=== PATIENT | female | born 1985 | race Caucasian/White ===

== ENCOUNTER 2016-04-25 23:26 | Emergency (ER) | payer OTHER ==
[2016-04-25 23:34] VITALS: RESP 18
--- NOTE | 2016-04-26 00:16 | ED ---
General Adult HPI - General Chief complaint: Abdominal Pain Stated complaint: Female Time Seen by Provider: 04/25/16 23:49 Source: patient, RN notes reviewed Mode of arrival: ambulatory Limitations: no limitations - History of Present Illness Initial comments: Patient is a 31-year-old female presents to the emergency room for evaluation of constipation. Patient states she had a laparoscopic appendectomy on Sunday. Patient states patient denies complications during the procedure. Patient states she had the procedure done in [place]. Patient states that she was given [place] as needed for pain. Patient states she hasn't had a bowel movement since she had the surgery done. Patient denies worsening abdominal pain. Patient denies any drainage or redness from the incision sites. Patient states her next follow-up appointment with her surgeon is next Sunday. Patient states she has the urge to make a bowel movement but is unable to get anything out. Patient states she tried taking Colace today, with no relief of symptoms. Patient states she discontinued [place] 2 days ago with no relief of symptoms. Patient denies history of bowel obstructions. Patient denies any other abdominal surgeries. Patient denies fevers or chills. Patient denies nausea or vomiting. - Related Data Home Medications Medication Instructions Recorded Confirmed Acetaminophen-Codeine 300-30mg 1 tab PO DAILY PRN 04/25/16 04/25/16 [Tylenol #3] Albuterol Inhaler [Ventolin Hfa 1 - 2 puff INHALATION RT-Q6H PRN 04/25/16 Inhaler] Docusate [Colace] 100 mg PO DAILY PRN 04/25/16 04/25/16 Ferrous Sulfate [Feosol] 325 mg PO DAILY 04/25/16 04/25/16 Pnv with Ca,No.72/Iron/FA 1 tab PO DAILY 04/25/16 04/25/16 [ Plus Tablet] Allergies Allergy/AdvReac Type Severity Reaction Status Date / Time ciprofloxacin [From Cipro] Allergy Unknown Verified 04/25/16 23:44 Childhood Review of Systems ROS Statement: Those systems with pertinent positive or pertinent negative responses have been documented in the HPI. ROS Other: All systems not noted in ROS Statement are negative. Past Medical History Past Medical History: Asthma History of Any Multi-Drug Resistant Organisms: None Reported Past Surgical History: Appendectomy Past Psychological History: No Psychological Hx Reported Smoking Status: Current every day smoker Past Alcohol Use History: Occasional Past Drug Use History: None Reported General Exam - General Exam Comments Initial Comments: Sitting in exam room, no acute distress. Limitations: no limitations General appearance: alert, in no apparent distress Head exam: Present: atraumatic, normocephalic, normal inspection Eye exam: Present: normal appearance ENT exam: Present: normal exam Neck exam: Present: normal inspection Respiratory exam: Present: normal lung sounds bilaterally. Absent: respiratory distress Cardiovascular Exam: Present: regular rate, normal rhythm, normal heart sounds GI/Abdominal exam: Present: soft, other (Healing 1cm incision sites in the umbilicus, left upper quadrant, left lower quadrant and suprapubic area. No urinary erythema, drainage or edema of the incision sites.). Absent: distended , tenderness, guarding, rebound, rigid Extremities exam: Present: normal inspection Back exam: Present: normal inspection Neurological exam: Present: alert, oriented X3, CN II-XII intact, normal gait Psychiatric exam: Present: normal affect, normal mood Skin exam: Present: warm, dry, intact, normal color. Absent: rash Course Vital Signs 04/25/16 04/26/16 23:30 01:11 Temperature 98.1 F 97.3 F L Pulse Rate 72 56 L Respiratory 18 18 Rate Blood Pressure 130/83 125/88 O2 Sat by Pulse 100 99 Oximetry Medical Decision Making - Medical Decision Making Patient is a 31-year-old female presents to emergency room for evaluation of constipation. KUB significant for for a mild amount of colonic stool. Molasses enema was ordered for patient. Patient was unable to tolerate procedure. Patient refused rectal exam. Will send patient home with magnesium citrate and advised her to drink plenty of water. Advised patient to return for worsening symptoms. Patient states she understands everything that was discussed with her. Case discussed with Dr. Melchor. - Radiology Data Radiology results: report reviewed, image reviewed Disposition Clinical Impression: Constipation Disposition: HOME SELF-CARE Condition: Good Instructions: Constipation (ED) Additional Instructions: Drink a lot of water. Take magnesium citrate. Please follow up with primary care provider in 1-2 days. If any new symptom arises or symptoms worsen, return to ER as soon as possible. Referrals: Demetra Ching MD [Primary Care Provider] - 1-2 days Time of Disposition: 01:06
--- NOTE | 2016-04-26 00:31 | XR ---
EXAM: XR Abdomen, 1 View. CLINICAL HISTORY: Reason: Pain TECHNIQUE: Frontal upright views of the abdomen/pelvis. COMPARISON: No relevant prior studies available. FINDINGS: Gastrointestinal tract: Soft tissue air is present within the right and left lateral abdominal wall soft tissues, and there is probably also free air that is seen outlining portions of the right and left colon, and would be consistent with the history of recent abdominal surgery. There is a mild to moderate amount of colonic stool present throughout, to the rectum. No grossly dilated bowel loops are seen. Visualized organs and vessels: Small round radiodense focus overlying the liver on one of the 2 images (not included on the second lower image) may be artifact or external to the patient given its appearance. Bones: Unremarkable. No acute fracture. IMPRESSION: 1. Intra-abdominal as well as abdominal wall air, which be consistent with the history of recent abdominal surgery. 2. Moderate amount of colonic stool. 3. Possible artifact overlying the right upper quadrant, as above.
[2016-04-26] MEDS ORDERED: MAGNESIUM CITRATE 296 ML BOTTLE PO ONE (01:05)
[2016-04-26 01:11] VITALS: BP 125/88; PULSE 56; TEMP 97.3
== END 2016-04-26 01:17 | disposition home or self-care (01) ==
LOC: EC 23:26
DX: K59.03 Drug induced constipation (principal); T40.2X5A Adverse effect of other opioids, initial encounter; Z79.899 Other long term (current) drug therapy; Z88.1 Allergy status to other antibiotic agents; F17.200 Nicotine dependence, unspecified, uncomplicated
CPT/HCPCS: 74000; 99284

== ENCOUNTER 2024-04-21 22:11 | Emergency (ER) | payer OTHER ==
[2024-04-21 22:19] VITALS: TEMP 98.7
--- NOTE | 2024-04-21 22:39 | ED ---
Seizure HPI - General Chief Complaint: Seizure Stated Complaint: Seizure Time Seen by Provider: 04/21/24 22:23 Source: patient, RN notes reviewed, old records reviewed Mode of arrival: wheelchair - History of Present Illness Initial Comments: This is a 39-year-old female who presents to the ER today for evaluation of seizure history of seizures. 2 weeks ago patient had seizure medication switched from Keppra to breviac. Patient is a poor historian history is mainly obtained from at bedside patient's family is here patient had a seizure just prior to arrival. Patient was having a normal day feeling well no recent illnesses. Take medication as prescribed. Patient did bite her tongue does have a headache which is normal postseizure symptoms for her MD Complaint: seizure -: minutes(s) Description of Episode: loss of consciousness, tonic-clonic movement, post-event confusion -: second(s) Witnessed: no Seizure History: known seizure disorder Place: home Possible Precipitating Event: none Treatments Prior to Arrival: none - Related Data Home Medications Medication Instructions Recorded Confirmed Acetaminophen-Codeine 300-30mg 1 tab PO DAILY PRN 04/25/16 04/25/16 [Tylenol #3] Albuterol Inhaler [Ventolin Hfa 1 - 2 puff INHALATION RT-Q6H PRN 04/25/16 04/25/16 Inhaler] Docusate [Colace] 100 mg PO DAILY PRN 04/25/16 04/25/16 Ferrous Sulfate [Feosol] 325 mg PO DAILY 04/25/16 04/25/16 Pnv,Calcium 72/Iron/Folic Acid 1 tab PO DAILY 04/25/16 04/25/16 [ Plus Tablet] Allergies Allergy/AdvReac Type Severity Reaction Status Date / Time ciprofloxacin [From Cipro] Allergy Unknown Verified 04/21/24 22:19 Childhood Review of Systems ROS Statement: Those systems with pertinent positive or pertinent negative responses have been documented in the HPI. ROS Other: All systems not noted in ROS Statement are negative. Past Medical History Past Medical History: Asthma, Seizure Disorder History of Any Multi-Drug Resistant Organisms: None Reported Past Surgical History: Appendectomy Past Psychological History: No Psychological Hx Reported Past Alcohol Use History: Occasional Past Drug Use History: None Reported General Exam General appearance: alert, in no apparent distress, anxious Head exam: Present: atraumatic, normocephalic, normal inspection Eye exam: Present: normal appearance, PERRL, EOMI. Absent: scleral icterus, conjunctival injection, periorbital swelling ENT exam: Present: normal exam, mucous membranes moist Neck exam: Present: normal inspection. Absent: tenderness, meningismus, lymphadenopathy Respiratory exam: Present: normal lung sounds bilaterally. Absent: respiratory distress, wheezes, rales, rhonchi, stridor Cardiovascular Exam: Present: regular rate, normal rhythm, normal heart sounds. Absent: systolic murmur, diastolic murmur, rubs, gallop, clicks GI/Abdominal exam: Present: soft, normal bowel sounds. Absent: distended, tenderness, guarding, rebound, rigid Extremities exam: Present: normal inspection, full ROM, normal capillary refill. Absent: tenderness, pedal edema, joint swelling, calf tenderness Back exam: Present: normal inspection Neurological exam: Present: alert, oriented X3, CN II-XII intact Psychiatric exam: Present: normal affect, normal mood Skin exam: Present: warm, dry, intact, normal color. Absent: rash Course Vital Signs 04/21/24 04/22/24 22:14 00:14 Temperature 98.7 F Pulse Rate 91 73 Respiratory 18 16 Rate Blood Pressure 127/82 109/75 O2 Sat by Pulse 99 97 Oximetry - Reevaluation(s) Reevaluation #1: 04/21/24 22:54 Records reviewed Reevaluation #2: 04/21/24 22:54 No recurrent seizure here in the ER Reevaluation #3: 04/21/24 22:54 Informed of results and questions answered Reevaluation #4: Was pt. sent in by a medical professional or institution (, PA, JAVA PROGRAMMER ANALYST, urgent care, hospital, or [place] [facility] care facility...) When possible be specific @ -no Did you speak to anyone other than the patient for history (EMS, parent, family, police, friend...)? What history was obtained from this source @ -no Did you review nursing and triage notes (agree or disagree)? Why? @ -agree Are old charts reviewed (outside hosp., previous admission, EMS record, old EKG, old radiological studies, urgent care reports/EKG's, [place] health care facility records)? Report findings @ -yes Differential Diagnosis (chest pain, altered mental status, abdominal pain women, abdominal pain men, vaginal bleeding, weakness, fever, dyspnea, syncope, headache, dizziness, GI bleed, back pain, seizure, CVA, palpatations, mental health, musculoskeletal)? @ -prior EKG interpreted by me (3pts min.). @ -no X-rays interpreted by me (1pt min.). @ -no CT interpreted by me (1pt min.). @ -no U/S interpreted by me (1pt. min.). @ -no What testing was considered but not performed or refused? (CT, X-rays, U/S, labs)? Why? @ -none What meds were considered but not given or refused? Why? @ -none Did you discuss the management of the patient with other professionals (professionals i.e. , PA, JAVA PROGRAMMER ANALYST, lab, RT, psych nurse, social services analyst, oss architect, teacher, customs patrol officer, case technician)? Give summary @ -no Was smoking cessation discussed for >3mins.? @ -no Was critical care preformed (if so, how long)? @ -no Were there social determinants of health that impacted care today? How? (Homelessness, low income, unemployed, alcoholism, drug addiction, transportation, low edu. Level, literacy, decrease access to med. care, fpc, rehab)? @ -none Was there de-escalation of care discussed even if they declined (Discuss DNR or withdrawal of care, Hospice)? DNR status @ -no What co-morbidities impacted this encounter? (DM, HTN, Smoking, COPD, CAD, Cancer, CVA, ARF, Chemo, Hep., AIDS, mental health diagnosis, sleep apnea, morbid obesity)? @ -none Was patient admitted / discharged? Hospital course, mention meds given and route, prescriptions, significant lab abnormalities, going to OR and other pertinent info. @ -39 female recurrent seizure, epileptic seizure, patient is in no distress here in the ER and can be discharged home Discharge Undiagnosed new problem with uncertain prognosis? @ -no Drug Therapy requiring intensive monitoring for toxicity (Heparin, Nitro, Insulin, Cardizem)? @ -no Were any procedures done? @ -no Diagnosis/symptom? @ -recurrent seizure Acute, or Chronic, or Acute on Chronic? @ -Acute Uncomplicated (without systemic symptoms) or Complicated (systemic symptoms)? @ -Complicated Side effects of treatment? @ -no Exacerbation, Progression, or Severe Exacerbation? @ -exacerbation Poses a threat to life or bodily function? How? (Chest pain, [place], NH, pneumonia, PE, COPD, DKA, ARF, appy, cholecystitis, CVA, Diverticulitis, Homicidal, Suicidal, threat to staff... and all critical care pts) @ -no Reevaluation #5: Differential Seizure: Recurrent seizure disorder, febrile seizure, alcohol withdrawal, stimulants, meningitis, encephalitis, intercranial hemorrhage, intracranial tumor, stroke, eclampsia, thyrotoxicosis, hypocalcemia, hyponatremia, hypernatremia, hypomagnesemia, psychogenic, this is not meant to be an all-inclusive list. Medical Decision Making - Medical Decision Making 39 female to the ER for evaluation of seizure recurrent seizure activity here in the ER patient feels well and can be discharged home - Lab Data Result diagrams: 04/21/24 23:15 04/21/24 23:15 Lab Results 04/21/24 04/21/24 Range/Units 23:15 23:15 WBC 6.3 (3.8-10.6) k/uL RBC 3.72 L (3.80-5.40) m/uL Hgb 11.0 L (11.4-16.0) gm/dL Hct 33.7 L (34.0-46.0) % MCV 90.6 (80.0-100.0) fL MCH 29.5 (25.0-35.0) pg MCHC 32.6 (31.0-37.0) g/dL RDW 15.2 (11.5-15.5) % Plt Count 209 (150-450) k/uL MPV 7.9 Neutrophils % 56 % Lymphocytes % 30 % Monocytes % 5 % Eosinophils % 6 % Basophils % 1 % Neutrophils # 3.5 (1.3-7.7) k/uL Lymphocytes # 1.9 (1.0-4.8) k/uL Monocytes # 0.3 (0-1.0) k/uL Eosinophils # 0.4 (0-0.7) k/uL Basophils # 0.0 (0-0.2) k/uL Sodium 136 L (137-145) mmol/L Potassium 3.6 (3.5-5.1) mmol/L Chloride 107 (98-107) mmol/L Carbon Dioxide 24 (22-30) mmol/L Anion Gap 5 mmol/L BUN 10 (7-17) mg/dL Creatinine 0.56 (0.52-1.04) mg/dL Est GFR (CKD-EPI)AfAm >90 (>60 ml/min/1.73 sqM) Est GFR (CKD-EPI)NonAf >90 (>60 ml/min/1.73 sqM) Glucose 87 (74-99) mg/dL Calcium 8.7 (8.4-10.2) mg/dL Magnesium 1.7 (1.6-2.3) mg/dL Total Bilirubin 0.3 (0.2-1.3) mg/dL AST 18 (14-36) U/L ALT 12 (4-34) U/L Alkaline Phosphatase 65 (38-126) U/L Total Protein 5.7 L (6.3-8.2) g/dL Albumin 3.4 L (3.5-5.0) g/dL Disposition Clinical Impression: Epileptic seizure, generalized Disposition: HOME SELF-CARE Condition: Fair Instructions (If sedation given, give patient instructions): Seizure/Epilepsy Discharge Instructions & Follow-Up, Recurrent Seizures in Adults (ED) Is patient prescribed a controlled substance at d/c from ED?: No Referrals: Macey Carney DO [Primary Care Provider] - 1-2 days Time of Disposition: 23:40
[2024-04-21] MEDS: LORazepam 2 MG/ML INJ IV STA (22:50)
[2024-04-21] MEDS: PROCHLORPERAZINE INJ 10 MG/2 ML VIAL IVP STA (22:50)
[2024-04-21] MEDS: KETOROLAC 15 MG/ML 1 ML VIAL IVP STA (22:51)
[2024-04-21] MEDS: SODIUM CHLORIDE 0.9% 1,000 ML IV STA (22:51)
[2024-04-21 23:44] LABS: ALT 12 U/L (4-34); AST 18 U/L (14-36); African American GFR (CKD) >90 (>60 ml/min/1.73 sqM); Albumin 3.4 g/dL (3.5-5.0); Alkaline Phosphatase 65 U/L (38-126); Anion Gap 5 mmol/L; Blood Urea Nitrogen 10 mg/dL (7-17); Calcium 8.7 mg/dL (8.4-10.2); Carbon Dioxide 24 mmol/L (22-30); Chloride 107 mmol/L (98-107); Glucose 87 mg/dL (74-99); Magnesium 1.7 mg/dL (1.6-2.3); Non-African American GFR(CKD) >90 (>60 ml/min/1.73 sqM); Potassium 3.6 mmol/L (3.5-5.1); Sodium 136 mmol/L (137-145); Total Bilirubin 0.3 mg/dL (0.2-1.3); Total Protein 5.7 g/dL (6.3-8.2)
[2024-04-22 00:15] VITALS: BP 109/75; PULSE 73; RESP 16
[2024-04-22 00:20] LABS: Basophils % (A) 1 %; Eosinophils # (A) 0.4 k/uL (0-0.7); Eosinophils % (A) 6 %; HCT 33.7 % (34.0-46.0); Lymphocytes # (A) 1.9 k/uL (1.0-4.8); Lymphocytes % (A) 30 %; MCH 29.5 pg (25.0-35.0); MCHC 32.6 g/dL (31.0-37.0); MCV 90.6 fL (80.0-100.0); Mean Platelet Volume 7.9; Monocytes # (A) 0.3 k/uL (0-1.0); Monocytes % (A) 5 %; Neutrophils # (A) 3.5 k/uL (1.3-7.7); Neutrophils % (A) 56 %; Platelet Count 209 k/uL (150-450); RBC 3.72 m/uL (3.80-5.40); RDW 15.2 % (11.5-15.5); WBC 6.3 k/uL (3.8-10.6)
== END 2024-04-22 00:14 | disposition home or self-care (01) ==
LOC: EC 22:11
DX: G40.909 Epilepsy, unspecified, not intractable, without status epilepticus (principal)
CPT/HCPCS: 36415; 80053; 83735; 85025; 99284; 96374; 96375 ×2; 96361; J2060; J0780; J1885